=== PATIENT | female | born 1995 | race Caucasian/White ===

== ENCOUNTER 2017-04-16 20:17 | Emergency (ER) | payer OTHER ==
[~2017-04-16] VITALS: Ht 165.1 cm; Wt 54.7 kg
[2017-04-16 20:36] VITALS: BP 118/77; PULSE 78; TEMP 36.9; O2SAT 95; Ht 165.1 cm; Wt 54.7 kg
[2017-04-16] MEDS ORDERED: BCPILLS PO (21:10)
[2017-04-16] MEDS ORDERED: ACET-1256 PO (21:10)
[2017-04-16] MEDS ORDERED: CNC/36 PO (21:10)
--- NOTE | 2017-04-16 21:40 | DIAGNOSTIC IMAGING REPORT ---
HEAD CT NONCONTRAST CT DOSE: HISTORY: fall, head injury, left facial pain TECHNIQUE: Multiaxial CT images of the head were performed without the use of intravenous contrast. Automated exposure control was utilized for this study. A dose lowering technique was utilized adhering to the principles of ALARA. Comparison: None. Findings: The paranasal sinuses and mastoid air cells are clear. The calvarium and skull base are intact. The ventricles and sulci are within normal limits. There is no mass, hematoma, midline shift, or acute infarct. Impression: No acute intracranial abnormality. Electronically signed by: Carlos A Brar M.D. 04/16/2017 9:38 PM Dictated Date/Time: 04/16/2017 9:34 PM
--- NOTE | 2017-04-16 21:48 | DIAGNOSTIC IMAGING REPORT ---
MAXILLOFACIAL CT CT DOSE: 730.08 mGy.cm HISTORY: fall, head injury, left facial pain TECHNIQUE: Multiaxial CT images of the maxillofacial region were performed and reformatted in the coronal plane without the use of contrast. A dose lowering technique was utilized adhering to the principles of ALARA. COMPARISON: None. FINDINGS: The visualized cervical spine, skull base, pterygoid plates, nasal bones, lamina papyracea, orbital floors, mandible, and zygomatic arches are intact. No fractures. The orbits are unremarkable. Right facial subcutaneous fat stranding consistent with a small contusion. IMPRESSION: No fractures within the maxillofacial region. Small right facial soft tissue contusion. Electronically signed by: Carlos A Brar M.D. 04/16/2017 9:47 PM Dictated Date/Time: 04/16/2017 9:40 PM
--- NOTE | 2017-04-16 22:05 | EMERGENCY ROOM VISIT NOTE ---
History First contact with patient: 20:49 Chief Complaint: FACIAL PAIN/INJURY Stated Complaint: CUT ON FACE History of Present Illness The patient is a 21 year old female who presents to the Emergency Room with complaints of a closed head injury. 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 The patient states that she hit the right side of her face, however she has pain in the left side of the jaw and difficulty opening the mouth. There was no loss of consciousness, however she did have some ringing in her ears initially. She reports a mild headache and rates her discomfort at 5/10. She denies any nausea/vomiting, numbness, weakness, confusion, blurred vision or slurred speech. She took Tylenol for her pain with little relief. She denies any neck pain or any other injuries. Review of Systems A complete 10 point review of systems was reviewed with the patient with pertinent positives and negatives as per history of present illness. All else were negative. Past Medical/Surgical History Medical Problems: (1) No significant active problems Surgical Problems: (1) History of eye surgery Social History Smoking Status: Never Smoker Alcohol Use: occasionally Marital Status: single Housing Status: lives with roommate Occupation Status: [employer] student Current/Historical Medications Scheduled Acetaminophen (Tylenol), 500 MG PO PRN UD Control Pills ( Control Pills), 1 TAB PO DAILY Methylphenidate Hcl (Concerta), 36 MG PO DAILY Physical Exam Vital Signs Date Time Temp Pulse Resp B/P (MAP) Pulse Ox O2 Delivery O2 Flow Rate FiO2 04/16/17 20:36 36.9 78 18 118/77 95 Room Air Physical Exam VITALS: Vitals are noted on the nurse's note and reviewed by myself. Vital signs stable. GENERAL: This is a 21-year-old female, in no acute distress, nondiaphoretic, well-developed well-nourished. SKIN: There is a small superficial abrasion to the right cheek. No lacerations. HEAD: Normocephalic atraumatic. FACE: There is tenderness to palpation to the left temporal region and jaw. EARS: External auditory canals clear, tympanic membranes pearly richard without erythema or effusion bilaterally. No hemotympanum. EYES: Pupils equal round and reactive to light and accommodation. Extraocular movements intact. MOUTH: Mucous membranes moist. NECK: Supple without nuchal rigidity. Cervical spine is nontender. HEART: Regular rate and rhythm without murmurs gallops or rubs. LUNGS: Clear to auscultation bilaterally without wheezes, rales or rhonchi. MUSCULOSKELETAL: Strength 5/5 throughout. NEURO: Patient was alert and oriented to person place and time. No focal neurological deficits. Medical Decision & Procedures ER Provider Diagnostic Interpretation: HEAD CT NONCONTRAST Findings: The paranasal sinuses and mastoid air cells are clear. The calvarium and skull base are intact. The ventricles and sulci are within normal limits. There is no mass, hematoma, midline shift, or acute infarct. Impression: No acute intracranial abnormality. MAXILLOFACIAL CT FINDINGS: The visualized cervical spine, skull base, pterygoid plates, nasal bones, lamina papyracea, orbital floors, mandible, and zygomatic arches are intact. No fractures. The orbits are unremarkable. Right facial subcutaneous fat stranding consistent with a small contusion. IMPRESSION: No fractures within the maxillofacial region. Small right facial soft tissue contusion. Medical Decision Differential diagnosis includes concussion, intracranial bleeding, contusion, facial bone fracture, among others. The patient is a 21-year-old female who presents today complaining of a closed head injury. CT of the head reveals no acute findings. CT of the face reveals no facial bone fractures. The patient's wound was cleaned and dressed. Conservative measures were discussed with the patient. She will follow-up with [facility] as needed. She verbalized understanding of my assessment and treatment plan and was discharged home in good condition. Head Trauma GCS Score: 15 Medication Reconcilliation Current Medication List: was personally reviewed by me Blood Pressure Screening Patient's blood pressure: Normal blood pressure Impression Primary Impression: Closed head injury Additional Impression: Facial contusion Departure Information Dispostion Home / Self-Care Condition GOOD Referrals No Doctor, Assigned (PCP) Patient Instructions My [facility] Additional Instructions You have been treated in the Emergency Department for a Closed Head Injury. CT Scan of your head/brain demonstrated no acute bleeding or other abnormalities. This does not completely rule out the risk for future damage to the brain. Proper wound care is essential for adequate wound healing and infection prevention. You can shower and clean the wound with soap and water. Do not scour over the wound, pat dry with a towel. You can use an antibiotic ointment with a dressing over the wound for the next 3-4 days. After this time you may leave the wound dry and open to the air. After the wound heals, make sure to apply SPF to prevent sunburn. If you desire, you may also apply vitamin E oil or cocoa butter daily to prevent scarring. For pain control, you can use the following [id number] medicines (if >12 yo): - Regular strength (325mg/tab) Tylenol (acetaminophen) 2 tabs every 4-6 hours as needed. Do not exceed 12 tablets in a 24 hour period. Avoid taking more than 4 grams (4000 mg) of Tylenol per day. This includes any other sources of acetaminophen you may take on a regular basis. - Regular strength (200 mg/tab) Advil (ibuprofen) 1-2 tabs every 4-6 hours as needed. Do not exceed a dose of 3200 mg per day. You should relax in a quiet, dark place for the rest of the day. Avoid any possible triggers including: cigarette smoke, caffeine, nicotine, chocolate, wine, beer, loud noises or music, or bright lights. Follow-up with [facility] this week for any persistent or worsening symptoms. Return to the Emergency Department if your current symptoms worsen despite treatment course outlined above, or if you develop any of the following symptoms : intractable pain despite aforementioned treatment course, visual disturbances , loss of vision, unilateral weakness or facial drooping, slurring of speech, loss of coordination, or loss of consciousness. Problem Qualifiers Primary Impression: Closed head injury Encounter type: initial encounter Qualified Codes: S09.90XA - Unspecified injury of head, initial encounter Additional Impression: Facial contusion Encounter type: initial encounter Qualified Codes: S00.83XA - Contusion of other part of head, initial encounter
== END 2017-04-16 22:16 | disposition home or self-care (01) ==
LOC: C.EDB 20:18 → C.EDD 22:16
DX: S09.90XA Unspecified injury of head, initial encounter (principal); S00.83XA Contusion of other part of head, initial encounter; S00.81XA Abrasion of other part of head, initial encounter; W18.30XA Fall on same level, unspecified, initial encounter; Y92.014 Private driveway to single-family (private) house as the place of occurrence of the external cause; Y99.0 Civilian activity done for income or pay; R68.84 Jaw pain; Z79.3 Long term (current) use of hormonal contraceptives